=== PATIENT | male | born 1955 | race Caucasian/White ===

== ENCOUNTER 2019-03-06 07:38 | Inpatient (IN) | payer OTHER ==
[~2019-03-06] VITALS: Ht 162.6 cm; Wt 81.6 kg
[2019-03-06] MEDS ORDERED: XARELTO20 MG PO (07:53)
[2019-03-06] MEDS ORDERED: VITAMIN D32000 UNI1 PO (07:53)
[2019-03-06] MEDS ORDERED: PRAVASTATIN SOD40 MG PO (07:55)
[2019-03-06] MEDS ORDERED: DILTIAZEM 24HR360 MG PO (07:55)
--- NOTE | 2019-03-06 07:56 | NUR ---
PACIENTE LLEGA EN [place] DE [place] [place] , HAKEEM REFERIDO MEDICO DE DR. VERN WILLS, PARA ADMITIR. DX.ULCERA PIERNA IZQUIERDA CON CELULITIS,PSEUDOMONAS .AISLAMIENTO CONSULTA ID DR. FERNANDEZ, ADM.IM
--- NOTE | 2019-03-06 09:58 | NUR ---
PTE EVALUADO POR LA DRA BOJORQUEZ QUIEN ORDENA EL [place]. MS L SIERRA ORIENTA SOBRE EL MISMO, LO CUAL REFIERE ENTENDER Y REALIZA PRUEBAS DE LABORATORIO OWEN ORDEN MEDICA Y SIGUIENDO MEDIDAS ASEPTICAS. PENDIENTE A RESULTADOS DE LABORATORIO Y CONSULTA CON DR Osmar JONES.
[2019-03-13] MEDS ORDERED: CIPRO500 MG PO (09:24)
== END 2019-03-13 13:06 | disposition home or self-care (01) | DRG 571 ==
LOC: ER 07:38 → SEC-K 16:13 → SURH 16:13
PROVIDERS: ADMIT Internal Medicine
PROC: B54DZZZ Ultrasonography of Bilateral Lower Extremity Veins (ICD-10-PCS; 2019-03-07)
PROC: CP1Z1ZZ Planar Nuclear Medicine Imaging of Musculoskeletal System, All using Technetium 99m (Tc-99m) (ICD-10-PCS; 2019-03-07)
PROC: 8E0ZXY6 Isolation (ICD-10-PCS; 2019-03-07)
PROC: 0JBQ0ZZ Excision of Right Foot Subcutaneous Tissue and Fascia, Open Approach (ICD-10-PCS; principal; 2019-03-13)
DX: L97.522 Non-pressure chronic ulcer of other part of left foot with fat layer exposed (principal); M86.172 Other acute osteomyelitis, left ankle and foot; B96.5 Pseudomonas (aeruginosa) (mallei) (pseudomallei) as the cause of diseases classified elsewhere; G71.09 Other specified muscular dystrophies; I25.10 Atherosclerotic heart disease of native coronary artery without angina pectoris; I10 Essential (primary) hypertension; Z86.73 Personal history of transient ischemic attack (TIA), and cerebral infarction without residual deficits; B95.62 Methicillin resistant Staphylococcus aureus infection as the cause of diseases classified elsewhere